=== PATIENT | male | born 1965 | race Caucasian/White ===

== ENCOUNTER → 2022-07-31 14:27 | Outpatient (CLI) | payer OTHER, SELFPAY ==
--- NOTE | 2022-07-31 14:30 | CT_ITS ---
FINAL REPORT TECHNIQUE: Axial images were obtained from the lung apex to the mid abdomen by computed tomography. This study was performed with techniques to keep radiation doses as low as reasonably achievable (ALARA). Individualized dose reduction techniques using automated exposure control or adjustment of mA and/or kV according to the patient's size were employed. CLINICAL HISTORY: H/O NICOTINE DEPENDENCE. Smoker 1 ppd x 49 years. occupational exposusre to asbestos and diesel fumes. no hx of cancer. FINDINGS: CHEST CT LOW DOSE CTDI vol (mGy): 2.90 DLP (mGy-cm): 109.68 There is no axillary adenopathy. There is no hilar or mediastinal adenopathy. The heart is normal in size. Left subclavian pacer is identified. There is moderate coronary artery calcification. There is no pericardial or pleural effusion. There is diffuse bronchial wall thickening consistent with bronchitis. There is a 5 mm nodule in the lateral right middle lobe. There is also 5 mm nodule in the lateral right lower lobe also on image 55. Limited images of the upper abdomen are unremarkable. IMPRESSION: Nodules in the right middle lobe and right lower lobe as above. Lung RADS category 2. Recommend 12 month follow-up low-dose chest CT. Reviewed, Interpreted and Dictated by Angel Ram III, MD Transcribed by Iva Gale Authenticated and [facility]
== END ==
PROVIDERS: PCP Family Medicine; Visit Provider Family Medicine
DX: Z87.891 Personal history of nicotine dependence (principal); Z12.2 Encounter for screening for malignant neoplasm of respiratory organs
CPT/HCPCS: 71271

== ENCOUNTER 2022-09-22 10:18 | Day surgery (SDC) | payer OTHER, SELFPAY ==
[2022-09-22 10:37] VITALS: BP 166/83; PULSE 75; RESP 17; TEMP 36.6; O2SAT 97; BMI 21.4
[2022-09-22 10:52] VITALS: O2SAT 97
[2022-09-22 11:34] VITALS: BP 136/82; PULSE 78; RESP 20; TEMP 36.4; O2SAT 91
--- NOTE | 2022-09-22 11:40 | [facility].SCOPE ---
Procedure: Date: 09/22/22 Patient Date of :: 1965 Procedure Performed:: Colonoscopy with polypectomy Indications:: Screening Performing Provider:: Braden Almeida MD Referring Provider:: . Sedation:: Monitored anesthesia care Procedure:: After informed consent was obtained the patient was taken to the endoscopy suite. Sedation ensued after the patient was transferred to the left lateral decubitus position. Pulse, blood pressure, and oxygen saturation were monitored throughout the procedure. Digital rectal exam revealed no significant abnormality. The colonoscope was placed in position. The entire colon was evaluated. The colonoscope was carefully removed and the patient was transferred to recovery in stable condition. Please see findings and specimens below for detail. Findings:: Bowel preparation relatively fair Fairly significant lack of relaxation (particularly sigmoid) Multiple complex polyps (see specimens) Specimens:: Small polyp at ileocecal valve (cold biopsy forceps) Lobulated complex polyp at 55 cm (cold snare) Large complex lobulated polyp at 50 cm (hot snare) Recommendations:: Timing of repeat colonoscopy is pending pathology but will likely be between 2-3 years secondary to size/nature of polyps and lack of relaxation. Complications:: No immediate Estimated blood obtained (mL): 1
[2022-09-22 11:44] VITALS: BP 120/44; PULSE 71; RESP 18; O2SAT 98
[2022-09-22 11:54] VITALS: BP 135/85; PULSE 72; RESP 16; O2SAT 99
[2022-09-22 12:04] VITALS: BP 126/84; PULSE 70; RESP 16; TEMP 36.4; O2SAT 99
== END 2022-09-22 12:05 | disposition home or self-care (01) ==
PROVIDERS: PCP Family Medicine; Visit Provider Surgery
PROC: 0DJD8ZZ Inspection of Lower Intestinal Tract, Via Natural or Artificial Opening Endoscopic (ICD-10-PCS; CPT 45380; principal; 2022-09-22 12:00)
DX: Z12.11 Encounter for screening for malignant neoplasm of colon (principal); D12.5 Benign neoplasm of sigmoid colon
CPT/HCPCS: 45380; 45385; J2704

== ENCOUNTER → 2023-07-30 12:36 | Outpatient (CLI) | payer OTHER, SELFPAY ==
--- NOTE | 2023-07-30 12:41 | CT_ITS ---
FINAL REPORT TECHNIQUE: Axial images were obtained from the lung apex to the mid abdomen by computed tomography. This study was performed with techniques to keep radiation doses as low as reasonably achievable (ALARA). Individualized dose reduction techniques using automated exposure control or adjustment of mA and/or kV according to the patient's size were employed. CLINICAL HISTORY: H/O TOBACCO USE smoker, 1/2 ppd x 47 years COMPARISON: 07/31/2022 FINDINGS: CHEST CT LOW DOSE CTDI vol (mGy): 2.90 DLP (mGy-cm): 110.72 Left subclavian pacer is identified. There is severe coronary artery calcification. There is no axillary adenopathy. There is no hilar or mediastinal adenopathy. The heart is normal in size. There is no pericardial or pleural effusion. There is a stable 5 mm right upper lobe nodule well seen on image 25. There is a stable 5 mm lateral right middle lobe nodule well seen on image 43. There is a stable 5 mm right lower lobe nodule well seen on image 52. Limited images of the upper abdomen are unremarkable. IMPRESSION: Stable nodules as above. Lung RADS category 2. Recommend 12 month follow-up low-dose chest CT. Reviewed, Interpreted and Dictated by Angel Ram III, MD Transcribed by Iva Gale Authenticated and [facility]
== END ==
PROVIDERS: PCP Family Medicine; Visit Provider Family Medicine
DX: Z12.2 Encounter for screening for malignant neoplasm of respiratory organs (principal); F17.218 Nicotine dependence, cigarettes, with other nicotine-induced disorders
CPT/HCPCS: 71271

== ENCOUNTER 2025-02-14 14:41 | Outpatient (CLI) | payer OTHER, SELFPAY ==
--- NOTE | 2025-02-14 14:43 | CT_ITS ---
FINAL REPORT TECHNIQUE: Thin section axial images were obtained from the lung apices to the upper abdomen by computed tomography. Reformatted images were obtained and reviewed. This study was performed with techniques to keep radiation doses al low as reasonably achievable (ALARA). Individualized dose reduction techniques using automated exposure control or adjustment of mA and/or kV according to the patient's size were employed. CLINICAL HISTORY: CANCER SCREENING CURRENT SMOKER 1PPD X50 YEARS COMPARISON: CTA of the chest, 01/18/2025, LDCT, 07/30/2023 FINDINGS: CHEST CT LOW DOSE 59-year-old male, current smoker, [id number]-[id number] history. CTDI vol (mGy): 2.90 DLP (mGy-cm): 112.81 A CTA of the chest was performed on 01/18/2025, in which a left hilar mass and left upper lung field infiltrate was identified. This was not seen on the prior LDCT of 2022. There is no axillary adenopathy. In the interval since the prior CT a of 01/18/2025, the previously noted airspace opacity in the left upper lung field has become more confluent, with a thick wall and a lucent center, measuring 5.5 x 3.9 cm in size. The hilar presumed adenopathy is similar in appearance. The heart is normal in size. There is no pericardial or pleural effusion. The previously noted right upper lobe 5 mm nodule seen on the prior LDCT is once again noted, best seen on image #26 of series 4, stable. The 5 mm lateral right middle lobe nodule noted previously is also present, best seen on image #43, and stable. The 5 mm right lower lobe nodule, slightly ill-defined, noted on the prior exam is also stable in appearance, best seen on image #55 of series 4. Limited images of the upper abdomen are unremarkable. IMPRESSION: Lung-RADS category 0. Recommend 4 to 6 week follow-up contrast-enhanced CT for further evaluation. Reviewed, Interpreted and Dictated by Jj Barksdale MD Transcribed by Valencia Guzman Authenticated and [facility]
== END 2025-02-14 23:59 | disposition home or self-care (01) ==
LOC: RAD 14:42
PROVIDERS: PCP Family Medicine; Visit Provider Family Medicine
DX: Z12.2 Encounter for screening for malignant neoplasm of respiratory organs (principal); Z87.891 Personal history of nicotine dependence
CPT/HCPCS: 71271

== ENCOUNTER 2025-03-15 13:26 | Outpatient (CLI) | payer OTHER, SELFPAY ==
--- NOTE | 2025-03-15 13:28 | CT_ITS ---
FINAL REPORT TECHNIQUE: Routine axial images were obtained from the lung apices to below the diaphragm following IV contrast administration. Individualized dose reduction techniques using automated exposure control or adjustment of the mA and/or kV according to the patient size were employed. CLINICAL HISTORY: MASS UPPER LOBE LT LUNG COMPARISON: 02/14/2025 FINDINGS: Again identified is a partially partially cavitary mass in the anterior left upper lobe measuring 4.6 x 3.0 cm. Finding is slightly decreased in size since previous. There are 2 new ill-defined noncalcified densities in the posterior left upper lobe well-seen on image 20 of series 2, likely inflammatory. There is a masslike density in the left hilum measuring 4.4 cm in diameter and surrounds the left upper and left lower lobe bronchi. There is narrowing of the left upper lobe bronchus well-seen on images 37 and 38 of series 2. The previously noted small noncalcified nodules in the right upper, middle, and lower lobes are stable. IMPRESSION: Persistence of mass in the left upper lobe is highly concerning as is the left hilar mass. Findings are highly concerning for underlying neoplasia. PET scan and bronchoscopy are recommended for further evaluation. Reviewed, Interpreted and Dictated by Jj Barksdale MD Transcribed by Iva Gale Authenticated and . [facility]
[2025-03-15 14:07] LABS: Blood Urea Nitrogen 3 mg/dl (9-20); Estimated Glomerular Filt Rate 99 ml/min (>60); GFR (African American) 120 ML/MIN (>60)
[2025-03-15] MEDS: IOPAMIDOL-370 (76%);100ML BOTTLE 75 ML IV (14:38)
[2025-03-15] MEDS: SODIUM CHLORIDE 0.9% 10ML SYR (RAD ONLY) 10 ML IV (14:38)
== END 2025-03-15 23:59 | disposition home or self-care (01) ==
PROVIDERS: PCP Family Medicine; Visit Provider Family Medicine
DX: R91.8 Other nonspecific abnormal finding of lung field (principal)
CPT/HCPCS: 36415; 71260; 82565; 84520; Q9967